=== PATIENT | female | born 1960 | race Caucasian/White ===

== ENCOUNTER 2018-05-09 14:12 | Emergency (ER) | payer BC ==
[2018-05-09] MEDS ORDERED: ONDANSETRON HCL INJ/PF 4 MG/2 ML SDV ONE (15:17)
[2018-05-09] MEDS ORDERED: ONDANSETRON HCL INJ/PF 4 MG/2 ML SDV IM ONE (15:17)
--- NOTE | 2018-05-09 15:17 | ER Document Report ---
ED Medical Screen (RME) - General Mode of Arrival: Ambulatory Information source: Patient TRAVEL OUTSIDE OF THE [place] IN LAST 30 DAYS: No <NILSA CAMPBELL - Last Filed: 05/09/18 15:19> <MAXIMILIANO RUIZ - Last Filed: 05/09/18 20:47> - General Chief Complaint: Bloody Stools Stated Complaint: VOMITING,DIZZY Time Seen by Provider: 05/09/18 15:05 Notes: Patient is a 57 year old female presenting to the emergency department complaining of multiple symptoms including hematemesis, bloody stool, light headedness and weakness onset today. Patient states she woke up this morning and noticed she had black tarry stool and had a several episodes of vomiting. She states she proceeded to go to [facility] this morning and was sent to the emergency department after having a near syncopal episode. At bedside, patient is actively vomiting clear liquid with a small amount of like coffee grounds. She denies any focal pain or ever having colonoscopy or endoscopy. mentions the patient taking a copious amounts of Francisca Back and Body recently. GENERAL: Alert, actively vomiting at bedside. No acute distress. HEAD: Normocephalic, atraumatic. EYES: Pupils equal, round, and reactive to light. Extraocular movements intact. ENT: Oral mucosa moist, tongue midline. NECK: Full range of motion. Supple. Trachea midline. LUNGS: Clear to auscultation bilaterally, no wheezes, rales, or rhonchi. No respiratory distress. HEART: Regular rate and rhythm. No murmurs, gallops, or rubs. ABDOMEN: Soft, non-tender. Non-distended. Bowel sounds present in all 4 quadrants. EXTREMITIES: Moves all 4 extremities spontaneously. NEUROLOGICAL: Alert and oriented x3. Normal speech. PSYCH: Normal affect, normal mood. SKIN: Pale. Warm, dry, normal turgor. No rashes or lesions noted. I have greeted and performed a rapid initial assessment of this patient. A comprehensive ED assessment and evaluation of the patient, analysis of test results and completion of the medical decision making process will be conducted by additional ED providers. (NILSA CAMPBELL) Past Medical History - General Information source: Patient - Social History Cigarette use (# per day): No Chew tobacco use (# tins/day): No Frequency of alcohol use: None Family history: Reviewed & Not Pertinent <NILSA CAMPBELL - Last Filed: 05/09/18 15:19> - Vital signs Vitals: Temp Pulse Resp BP Pulse Ox 97.9 F 70 16 119/67 99 05/09/18 15:50 05/09/18 15:50 05/09/18 15:50 05/09/18 15:50 05/09/18 15:50 Course - Laboratory Result Diagrams: 05/09/18 18:20 05/09/18 15:28 <MAXIMILIANO RUIZ - Last Filed: 05/09/18 20:47> - Vital Signs Vital signs: Temp Pulse Resp BP Pulse Ox 97.9 F 77 17 115/64 95 05/09/18 15:50 05/09/18 17:33 05/09/18 20:33 05/09/18 20:33 05/09/18 20:33 - Laboratory Laboratory results interpreted by me: 05/09/18 05/09/18 05/09/18 15:28 15:28 18:20 WBC 12.7 H 13.3 H Hgb 11.8 L 11.2 L Hct 34.0 L Seg Neutrophils % 85.0 H 89.6 H Lymphocytes % 9.5 L 7.2 L Monocytes % 2.7 L Absolute Neutrophils 10.8 H 11.9 H Chloride 108 H BUN 39 H Glucose 148 H Salicylates 1.4 L Acetaminophen < 10 L
[2018-05-09 15:45] LABS: ABSOLUTE BASOPHILS # (AUTO) 0.1 10^3/uL (0.0-0.2); ABSOLUTE LYMPHOCYTES (AUTO) 1.2 10^3/uL (0.5-4.7); ABSOLUTE MONOCYTES (AUTO) 0.6 10^3/uL (0.1-1.4); ABSOLUTE NEUT (AUTO) 10.8 10^3/uL (1.7-8.2); BASOPHILS % (AUTO) 0.8 % (0-2); EOSINOPHILS % (AUTO) 0.3 % (0-6); HEMATOCRIT 36.1 % (36.0-47.0); HEMOGLOBIN 11.8 g/dL (12.0-15.5); LYMPHOCYTES % (AUTO) 9.5 % (13-45); MEAN CORPUSCULAR HEMOGLOBIN 28.5 pg (27.0-33.4); MEAN CORPUSCULAR HGB CONC 32.7 g/dL (32.0-36.0); MEAN CORPUSCULAR VOLUME 87 fl (80-97); MONOCYTES % (AUTO) 4.4 % (3-13); PLATELET COUNT 318 10^3/uL (150-450); RED BLOOD COUNT 4.13 10^6/uL (3.72-5.28); RED CELL DISTRIBUTION WIDTH 13.5 % (11.5-14.0); TOTAL CELLS COUNTED % (AUTO) 100 %; WHITE BLOOD COUNT 12.7 10^3/uL (4.0-10.5)
[2018-05-09 16:07] LABS: ACETAMINOPHEN < 10 ug/mL (10-30); ALANINE AMINOTRANSFERASE 38 U/L (9-52); ALBUMIN 3.9 g/dL (3.5-5.0); ALCOHOL < 10 mg/dL (NONE DETECTED); ALKALINE PHOSPHATASE 51 U/L (38-126); ANION GAP 12 (5-19); ASPARTATE AMINO TRANSFERASE 22 U/L (14-36); BILIRUBIN,DIRECT 0.2 mg/dL (0.0-0.4); BILIRUBIN,TOTAL 1.3 mg/dL (0.2-1.3); BLOOD UREA NITROGEN 39 mg/dL (7-20); CALCIUM 9.1 mg/dL (8.4-10.2); CARBON DIOXIDE 23 mmol/L (22-30); CHLORIDE 108 mmol/L (98-107); GLUCOSE 148 mg/dL (75-110); LIPASE 52.5 U/L (23-300); POTASSIUM 4.3 mmol/L (3.6-5.0); SALICYLATE 1.4 mg/dL (2.0-20.0); SODIUM 143.4 mmol/L (137-145); TOTAL PROTEIN 6.6 g/dL (6.3-8.2)
[2018-05-09] MEDS ORDERED: NORMAL SALINE 1000 ML 1,000 ML IV ONE (18:00)
[2018-05-09] MEDS ORDERED: PANTOPRAZOLE SODIUM 40 MG VIAL IV ONE (18:01)
[2018-05-09 18:43] LABS: PROTHROMBIN TIME 13.7 SEC (11.4-15.4)
[2018-05-09 18:46] LABS: ABSOLUTE BASOPHILS # (AUTO) 0.1 10^3/uL (0.0-0.2); ABSOLUTE MONOCYTES (AUTO) 0.4 10^3/uL (0.1-1.4); ABSOLUTE NEUT (AUTO) 11.9 10^3/uL (1.7-8.2); BASOPHILS % (AUTO) 0.5 % (0-2); HEMOGLOBIN 11.2 g/dL (12.0-15.5); LYMPHOCYTES % (AUTO) 7.2 % (13-45); MEAN CORPUSCULAR HEMOGLOBIN 28.8 pg (27.0-33.4); MEAN CORPUSCULAR VOLUME 87 fl (80-97); MONOCYTES % (AUTO) 2.7 % (3-13); PLATELET COUNT 259 10^3/uL (150-450); RED CELL DISTRIBUTION WIDTH 13.8 % (11.5-14.0); SEGMENTED NEUTROPHILS % (AUTO) 89.6 % (42-78); TOTAL CELLS COUNTED % (AUTO) 100 %; WHITE BLOOD COUNT 13.3 10^3/uL (4.0-10.5)
[2018-05-10] MEDS ORDERED: NORMAL SALINE 1000 ML 1,000 ML IV ONE (00:19)
--- NOTE | 2018-05-10 00:29 | ER Document Report ---
ED General - General Chief Complaint: Bloody Stools Stated Complaint: VOMITING,DIZZY Time Seen by Provider: 05/09/18 15:05 Mode of Arrival: Ambulatory TRAVEL OUTSIDE OF THE [place] IN LAST 30 DAYS: No - HPI Patient complains to provider of: Melena Onset: Other - This is a 49-year-old otherwise healthy female that presents for evaluation of fatigue as well as dyspepsia in the setting of having taken NSAIDs recently to help with occasional pains, she notes that she began to have dark stools today that were smelly as well as an episode of vomit which looked dark in color and had some blood in it. She is never had anything like this before, does not take any blood thinners, denies any trauma to the abdomen, notes that she is felt incredibly fatigued every time she is changed positions since this started. Denies any chest pain, palpitations, does endorse lightheadedness, denies fevers or chills. - Related Data Allergies/Adverse Reactions: No Known Allergies Allergy (Verified 05/09/18 15:23) Past Medical History - General Information source: Patient - Social History Smoking Status: Never Smoker Cigarette use (# per day): No Chew tobacco use (# tins/day): No Frequency of alcohol use: None Drug Abuse: None Family History: None Patient has suicidal ideation: No Patient has homicidal ideation: No Renal/ Medical History: Denies: Hx Peritoneal Dialysis Review of Systems - Review of Systems -: Yes All other systems reviewed and negative Physical Exam - Vital signs Vitals: Temp Pulse Resp BP Pulse Ox 97.9 F 70 16 119/67 99 05/09/18 15:50 05/09/18 15:50 05/09/18 15:50 05/09/18 15:50 05/09/18 15:50 - General General appearance: Appears well In distress: None - HEENT Head: Normocephalic Eyes: Normal Conjunctiva: Normal Cornea: Normal Extraocular movements intact: Yes Eyelashes: Normal Pupils: PERRL - Respiratory Respiratory status: No respiratory distress Chest status: Nontender Breath sounds: Normal Chest palpation: Normal - Cardiovascular Rhythm: Regular Heart sounds: Normal auscultation Murmur: No - Abdominal Inspection: Normal Distension: No distension Tenderness: Tender - Diffuse tenderness most prominent in the epigastrium - Back Back: Normal - Extremities General upper extremity: Normal inspection, Nontender, Normal ROM, Normal strength General lower extremity: Normal inspection, Nontender, Normal ROM, Normal strength - Neurological Neuro grossly intact: Yes Cognition: Normal Orientation: AAOx4 [place] Coma Scale Eye Opening: Spontaneous [place] Coma Scale Verbal: Oriented [place] Coma Scale Motor: Obeys Commands [place] Coma Scale Total: 15 Speech: Normal Cerebellar coordination: Normal Motor strength normal: LUE, RUE, LLE, RLE - Psychological Associated symptoms: Normal affect Course - Re-evaluation Re-evalutation: 05/10/18 00:52 This is a well-appearing 49-year-old female presents for evaluation of melena and dyspepsia. Labs drawn through triage, was given nausea medicine through triage. Patient tells a story consistent likely with an upper GI bleed. She has been taking NSAIDs. Believe that this patient may have what sounds like a potential ulcer given her symptoms, low volume hematemesis as well as melanotic stools. We will obtain orthostatic vital signs, will obtain type and screen, will obtain CBC. CBC demonstrates a normal H&H, her chemistry demonstrates an elevated BUN/ creatinine ratio suggestive of bleed. Her stool is heme positive, her vomit was heme positive. We this patient likely will require intervention including but not limited to endoscopy possible clipping. Contacted [facility] [place] Dr. ROBISON who agrees to evaluate this patient and admit. We will plan for the patient undergo repeat H&H, have administered PPI IV. We will administer bolus IV. Patient remains hemodynamically stable at this time while in bed, she remains well-appearing, repeat H&H is stable. Do not believe there is no indication at this time for transfusion. Have added coagulation markers as well and updated transfer center. Patient undergo a transfer to [facility], did fill out them to follow-up. Patient was hemodynamically stable. - Vital Signs Vital signs: Temp Pulse Resp BP Pulse Ox 97.9 F 77 17 115/64 95 05/09/18 15:50 05/09/18 17:33 05/09/18 20:33 05/09/18 20:33 05/09/18 20:33 - Laboratory Result Diagrams: 05/09/18 18:20 05/09/18 15:28 Laboratory results interpreted by me: 05/09/18 05/09/18 05/09/18 15:28 15:28 18:20 WBC 12.7 H 13.3 H Hgb 11.8 L 11.2 L Hct 34.0 L Seg Neutrophils % 85.0 H 89.6 H Lymphocytes % 9.5 L 7.2 L Monocytes % 2.7 L Absolute Neutrophils 10.8 H 11.9 H Chloride 108 H BUN 39 H Glucose 148 H Salicylates 1.4 L Acetaminophen < 10 L Discharge - Discharge Clinical Impression: Upper GI bleed Condition: Stable Disposition: [facility]
[2018-05-10 01:20] VITALS: BP 123/69
== END 2018-05-10 00:30 | disposition short-term general hospital (02) ==
LOC: ER 14:12
DX: K92.2 Gastrointestinal hemorrhage, unspecified (principal); R53.83 Other fatigue; R10.13 Epigastric pain; R11.10 Vomiting, unspecified
CPT/HCPCS: 99285; 96372; 96361; 96374; 86900; 86901; 36415; 86850; 80307 ×3; 83690; 85025; 85610; 82271; 82272; 80053; S0164; J2405; J7030 ×2